=== PATIENT | male | born 1945 | race Caucasian/White ===

== ENCOUNTER 2023-12-19 15:24 | Emergency (ER) | payer OTHER, SELFPAY ==
[2023-12-19] VITALS (22 sets, daily range): BP systolic 108–161; BP diastolic 56–89; BMI 26.1
--- NOTE | 2023-12-19 15:47 | ED.PDOC.TRB ---
ED Provider Triage
-
Patient seen by provider in Triage?: Seen in Triage
A medical screening examination has been initiated by a qualified medical provider. Based on the assessment performed at this time, it has been determined that an emergent medical condition may exist and the patient has been informed that further
medical evaluation and possible additional diagnostic testing may be needed.
HPI: This is a medical evaluation conducted in person to initiate diagnostic evaluation and provide initial therapeutics. Please see further documentation by the treating clinician.
GENERAL: Alert ,tearful
EYE: No visual abnormalities.
NECK: Trachea midline
ENT: No visible abnormalities.
LUNGS: No acute respiratory distress
NEUROLOGICAL: Alert and oriented
SKIN: no visible lesions.
MUSCULOSKELETAL: Moving extremities normally
PSYCH: Normal and appropriate interaction.
78-year-old male presenting to the emergency department with concerns of low hemoglobin done as an outpatient of 6.6. Has felt fatigued and has had generalized weakness over the past 5 days or so. Denies any known blood loss and denies any history
of blood disorders. Plan for repeated labs and further assessment.
[2023-12-19 16:14] LABS: % Basophils 0.6 % (0-2); % Eosinophils 1.4 % (0-6); % Immature Granulocytes 0.7 % (0-0.5); % Monocytes 8.8 % (1.7-9.3); % Neutrophils 74.5 % (42.2-75.2); Absolute Basophils 0.1 10^3/uL (0-0.2); Absolute Eosinophils 0.1 10^3/uL (0-0.7); Absolute Immature Granulocytes 0.1 10^3/uL (0-0.05); Absolute Lymphocytes 1.2 10^3/uL (1.2-3.4); Absolute Monocytes 0.7 10^3/uL (0.1-0.6); Absolute Neutrophils 6.3 10^3/uL (1.4-6.5); Hematocrit 17.8 % (39.0-52.0); Hemoglobin 6.2 g/dL (13.0-18.0); Mean Corp Hgb Conc. 34.8 g/dL (33.0-37.0); Mean Corpuscular Hgb 32.3 pg (27.0-31.0); Mean Corpuscular Volume 92.7 fL (80.0-94.0); Mean Platelet Volume 9.6 fL (7.4-10.4); Nucleated Red Blood Cells % 0.8 % (-); Platelet Count 193 10^3/uL (130-400); Red Blood Cell Count 1.92 10^6/uL (4.70-6.10); Red Cell Dist. Width 15.6 % (11.5-14.5); White Blood Cell Count 8.4 10^3/uL (4.8-10.8)
[2023-12-19 16:20] LABS: APTT 44.8 Sec (23.4-35.0)
[2023-12-19 16:27] LABS: ALT (SGPT) 20 U/L (0-50); AST (SGOT) 23 U/L (17-59); Albumin 3.9 g/dl (3.5-5.0); Alkaline Phosphatase 78 U/L (38-126); Blood Urea Nitrogen 36 mg/dl (9-20); Calcium 11.2 mg/dl (8.4-10.2); Carbon Dioxide 22 mmol/L (22-30); Chloride 108 mmol/L (98-107); Glucose 174 mg/dl (70-99); Iron 59 ug/dl (49-181); Potassium 4.4 mmol/L (3.5-5.1); Sodium 143 mmol/L (135-145); Total Bilirubin 1.8 mg/dl (0.2-1.3); Total Protein 8.1 g/dl (6.3-8.2); eGFR > 60.00
[2023-12-19 16:36] LABS: Percent Saturation 21 % (20-50); Total Iron Binding Capacity 277 ug/dl (261-462)
--- NOTE | 2023-12-19 17:28 | EDRN ---
second ABO drawn and sent
[2023-12-19 17:34] LABS: Urine Albumin Trace (Neg - Trace); Urine Bilirubin Negative (Negative); Urine Character Clear (Clear); Urine Color Yellow; Urine Glucose Negative (Negative); Urine Ketone Negative (Negative); Urine Leukocyte Negative (Negative); Urine Nitrite Negative (Negative); Urine Occult Blood Trace (Negative); Urine Urobilinogen Negative (Neg - 1+)
[2023-12-19 18:02] LABS: Urine Calcium Oxalate Crystals Present; Urine Red Blood Cell 0-2 /HPF (0-2); Urine Squamous Cell 0-2 /LPF (Few); Urine White Cell 0-2 /HPF (0-5)
[2023-12-19 18:03] LABS: Urine Bacteria Few (Negative); Urine Mucus Few
[2023-12-19 18:31] LABS: Vitamin B12 247 pg/ml (239-931)
[2023-12-19 19:04] LABS: Glucose - Point of Care 182 mg/dl (70-99)
[2023-12-19 19:15] LABS: Total Iron Binding Capacity 267 ug/dl (261-462)
--- NOTE | 2023-12-19 20:33 | ED.GENMED ---
History of Present Illness
General
Chief Complaint: Abnormal Lab Value
Source: patient and family
Exam Limitations: none
Time Seen by Provider: 12/19/23 17:40
Nursing documentation reviewed up to this point in time: agreed with
History of Present Illness
History of Present Illness:
78-year-old male with a past medical history of hypertension, hyperlipidemia, CHF, diabetes, PVD status post bilateral midfoot amputation who presents to the emergency room for evaluation of fatigue and weakness. Patient reportedly had a mechanical
fall on Sunday witnessed by his daughter. He lost his balance and fell from ground-level. Fell onto his left side. No head trauma. No reported loss of consciousness�initially described as passing out but on clarification says that there was no
loss of consciousness. Since then has been complaining of pain in his left side and has had tremendous fatigue. Brought into his primary doctor who ordered outpatient blood work and he was found to be acutely anemic (I called his PCP, outpatient
hemoglobin 6.6, down from baseline of 11 in July). Was referred to the ER for evaluation. He complains of pain in the left chest and flank. Also complains of some left hip pain. He denies any shortness of breath. He denies any nausea or
vomiting. He has not had any black or bloody stools. He denies any other complaints. He is on Plavix.
Review of Systems
Review of Systems
All Other Systems: ROS reviewed and negative except as documented in HPI and ROS
Constitutional: Reports fatigue; Denies fever
Respiratory: Denies trouble breathing
Cardiac: Reports chest pain
ABD/GI: Denies abdominal pain, nausea, vomiting, bloody stools or black stools
: Reports flank pain; Denies dysuria
Musculoskeletal: Reports joint pain and back pain; Denies neck pain
Neurological: Denies dizzy or headache
Phy Exam
Physical Exam
Physical Exam:
General: Awake, alert; no acute distress
Head: Normocephalic, atraumatic
Eyes: Conjunctiva normal, pupils equal round and reactive to light bilaterally
Throat: Airway intact, handling secretions
Neck: Trachea midline, no cervical spine tenderness
Back: Mild tenderness in the left flank but no ecchymosis or abrasions, no midline thoracic or lumbar tenderness
Lungs: Clear to auscultation bilaterally, no wheezing, rales, rhonchi
Heart: Regular rate and rhythm, systolic murmur; mild left chest wall tenderness but no crepitus or ecchymosis
Abd: Soft, non distended, nontender
Rectal: Brown stool heme negative, good rectal tone
Neuro: No gross deficits
Extremities: Patient has some mild lateral left hip tenderness and pain with range of motion of the left hip; no tenderness in the left knee or ankle, right lower extremity atraumatic, bilateral upper extremities atraumatic; good pulses in all
extremities
Scores
Heart Failure Risk
Heart Failure Risk Score: Not Applicable
Heart Score for Chest Pain Patients
STEMI patient?: Not applicable
Withdrawal Assessment of Alcohol
Withdrawal Assessment Completed?: Not applicable
Course
Orders/Labs/Results
Orders:
Orders
12/19/23 15:47
EKG [Electrocardiogram (*1)] Urgent
Reason for Study: Fatigue / Weakness
12/19/23 15:48
EKG- Treatment ONCE
12/19/23 15:58
Type+Screen Urgent
Complete Blood Count/With Diff Urgent
Comprehensive Metabolic Panel Urgent
Ferritin Urgent
Folate Urgent
Iron Urgent
PTT Urgent
TIBC [Total Iron Binding] Urgent
Vitamin B12 Urgent
12/19/23 17:17
ABO2 Urgent
BBK Wristband Number:
Associate notified that ABO2 has been ordered: [id number]
Date: 12/19/23
Time: 17:13
Corral Boss ID: [id number]
Urinalysis Reflex To Culture Urgent
Date Specimen was Collected: 12/19/23
Time Specimen was Collected: 16:53
Urine Microscopic Reflex Cult Urgent
12/19/23 17:34
CT Head W/o Iv Contrast Urgent
Comment:
Reason For Exam: Change in mental status
12/19/23 17:40
* Blood Bank Products Urgent
Blood Bank Products: *Packed RBC Leuko(PRBC's)
Quantity: 2
Transfuse Today: Yes
Reason: Anemia
12/19/23 18:02
CT Chest/abd/pel W Iv Cont Urgent
Comment:
Reason For Exam: syncope and fall, left sided flank pain, anemia
12/19/23 18:36
Total Iron Binding Urgent
Abnormal Lab Results
12/19/23 12/19/23 12/19/23
15:58 17:17 19:02
RBC 1.92 L 10^6/uL
(4.70-6.10)
Hgb 6.2 L* g/dL
(13.0-18.0)
Hct 17.8 L* %
(39.0-52.0)
MCH 32.3 H pg
(27.0-31.0)
RDW 15.6 H %
(11.5-14.5)
Abs Immat Gran (auto) 0.1 H 10^3/uL
(0-0.05)
Absolute Monos (auto) 0.7 H 10^3/uL
(0.1-0.6)
Immature Gran % 0.7 H %
(0-0.5)
Lymphocytes % 14.0 L %
(20.5-51.1)
APTT 44.8 H Sec
(23.4-35.0)
Chloride 108 H mmol/L
(98-107)
BUN 36 H mg/dl
(9-20)
Glucose 174 H mg/dl
(70-99)
Calcium 11.2 H mg/dl
(8.4-10.2)
Total Bilirubin 1.8 H mg/dl
(0.2-1.3)
Ur Occult Blood Reflex Trace A
(Negative)
Urine Bacteria (Reflex) Few A
(Negative)
POC Glucose 182 H mg/dl
(70-99)
Crossmatch IS Only See Detail
12/19/23 15:58
12/19/23 15:58
Vital Signs
Initial and Last Documented VS:
Initial Vital Signs
Temp Pulse Resp BP Pulse Ox
36.8 C 93 18 127/56 98
12/19/23 15:40 12/19/23 15:40 12/19/23 15:40 12/19/23 15:40 12/19/23 15:40
Last Documented Vital Signs
Temp Pulse Resp BP Pulse Ox
37.1 C 78 16 148/60 97
12/19/23 20:40 12/19/23 20:40 12/19/23 20:40 12/19/23 20:40 12/19/23 20:40
MDM/Problems Addressed
Differential Diagnosis Includes:
Fatigue/symptomatic anemia: Bleeding related to traumatic injury, iron deficiency anemia, hemolytic anemia
Left-sided pain: RP hematoma, fractures, contusion, intra-abdominal injury
MDM/Problems Addressed:
78-year-old male with history as documented notably on Plavix presents for evaluation of fatigue�this is primary symptom but has also had left-sided pain since a ground-level fall on Sunday. Had outpatient lab work which showed anemia with a
hemoglobin of 6.2 down from a baseline of 11 in July. Vital signs are normal. He has no bruising or ecchymosis does have some tenderness in the flank and hip as well as in the left chest wall. Hemoccult is negative here. Will place large-bore IV
send labs including a CBC and a CMP, coags, type and screen. Will send iron studies, B12 and folate. Check urinalysis. Will check CT of the head, CT of the chest/abdomen/pelvis to rule out traumatic injury/bleeding. Transfuse 2 units PRBCs.
Reassess after the above.
Labs reviewed: CBC confirms anemia with a hemoglobin of 6.2 today. Normocytic anemia. CMP shows no clinically significant abnormalities. Urinalysis negative for infection, no hematuria. Awaiting imaging.
CT head negative for any acute pathology. CT chest/abdomen/pelvis called back by radiology: Positive for multiple injuries most notably large left retroperitoneal hematoma (no active extravasation noted) suspected source of acute blood loss anemia.
He also has a left subcapital femoral neck fracture. He has left 11th rib fracture nondisplaced. He has a tiny splenic laceration. He also has some mild pulmonary edema. Vital signs are stable. Blood transfusion in progress. Will transfer to
trauma center for admission and care.
Case discussed with [facility] trauma physician, accepted for transfer. Recommended dosing with DDAVP. Will monitor pending transport.
*Radiology
Radiology exam reviewed: preliminary read by ED provider and radiology read reviewed
*Pulse Oximetry
Patient hypoxic: no
*EKG
Interpreted by ED Provider?: Yes
Heart Rate: 102
Rate: tachycardiac
Rhythm: a-fib
[place]: normal axis
Interval: normal interval
QRS Pattern: normal QRS
Ischemia: no ischemia
*Critical Care Note
Total Time (30-74mins, 75-104mins- exclusive of procedures): 37
comment:
Critical care statement: A total of 37 minutes of critical care time was provided for this patient. This includes management of unstable vital signs, evaluation of the patient at bedside, frequent reassessment, discussion with
consultants/hospitalist, and review of pertinent medical records. This time was separate from time utilized to perform any aforementioned documented procedures
Data Reviewed
Source: patient and family
Patient Management
Discussion with other providers: PCP (Discussed with PCP directly) and Industrial Machine Operator (Discussed with trauma physician)
ED Attending Note
-
Portions of this chart may have been created with voice recognition software.� Occasional wrong word or��sound alike� substitutions may have occurred due to the inherent limitations of voice recognition software.
Discharge Plan
Departure
Patient Disposition: Acute Care Hospital
Date of Disposition: 12/19/23
Time of Disposition: 20:48
Discharge Problem:
Traumatic retroperitoneal hematoma, Closed fracture of left hip, Splenic laceration, Fracture of rib, Acute blood loss anemia
Prescriptions:
No Action
atorvastatin 20 mg tablet
20 mg PO DAILY
Humulin 70/30 U-100 Insulin 100 unit/mL (70-30) suspension
25 unit SC BID
clopidogrel 75 mg tablet
75 mg PO DAILY
metformin 1,000 mg tablet
1,000 mg PO BID
doxazosin 4 mg tablet
4 mg PO DAILY
furosemide 20 mg tablet
20 mg PO DAILY
cholecalciferol (vitamin D3) 25 mcg (1,000 unit) Tablet
25 mcg PO DAILY
Referrals:
Matthew Elder MD [Family Provider] -
Hospital Transfer
Other hospital: [facility]
I certify that the patient requires transfer: Yes
Discussed case with accepting physician: Dr. Dave
Reason for transfer: higher level of care, availability of service and specialties available
Interventions
Interventions:
*Risk Screen - Suicide Last Done: 12/19/23 15:40
*General Assessment Last Done: 12/19/23 15:40
*Neglect/Abuse Screening Last Done: 12/19/23 15:40
ED- Fall Risk Assessment Last Done: 12/19/23 17:23
*ED COVID-19 Vaccine History Last Done: 12/19/23 17:23
Discharge Date and Time
Print Language: Swedish
[2023-12-19 20:53] LABS: INR 2.65; PT 28.6 Sec (11.4-14.6)
--- NOTE | 2023-12-19 21:45 | TRANSFER ---
Pt. transferred to [facility] while blood products were still transfusing.
== END 2023-12-19 21:55 | disposition short-term general hospital (02) ==
LOC: EMR 15:24
PROVIDERS: Emergency Medicine; Physician Assistant; EMERGENCY PHYSICIAN Emergency Medicine; FAMILY PHYSICIAN Internal Medicine
DX: S36.892A Contusion of other intra-abdominal organs, initial encounter (principal); S72.012A Unspecified intracapsular fracture of left femur, initial encounter for closed fracture; S36.039A Unspecified laceration of spleen, initial encounter; S22.39XA Fracture of one rib, unspecified side, initial encounter for closed fracture; W01.0XXA Fall on same level from slipping, tripping and stumbling without subsequent striking against object, initial encounter; R79.89 Other specified abnormal findings of blood chemistry; I11.0 Hypertensive heart disease with heart failure; I50.9 Heart failure, unspecified; E78.00 Pure hypercholesterolemia, unspecified; E11.51 Type 2 diabetes mellitus with diabetic peripheral angiopathy without gangrene; D62 Acute posthemorrhagic anemia; Z79.02 Long term (current) use of antithrombotics/antiplatelets
CPT/HCPCS: 99291; 70450; 71260; 74177; 80053; 81003; 81015; 82607; 82728; 82746; 82962; 83540; 83550; 85025; 85610; 85730; 86850; 86900; 86901; 86920; 93005; J2597; P9016; Q9967